=== PATIENT | male | born 1955 | race Caucasian/White ===

== ENCOUNTER 2016-07-21 17:55 | Emergency (ER) | payer SELFPAY ==
[~2016-07-21 17:55] MED LIST: AMARYL PO; ASPIRIN PO; ASPIRIN81 MG PO; AVALIDE 150-12.1 TAB PO; AVALIDE 300-251 TAB PO; BAYER ASPIRIN325 M1 PO; BENZONATATE PO; CYMBALTA PO; DEMADEX PO; DEPO-TESTOT200 MG/ML IM; DULOXETINE HCL60 MG PO; FENOFIBRATE160 MG PO; FERROUS SULFATE PO; FISH OIL 1,2001 EAC3 PO; FLEXERIL PO; GABAPENTIN800 MG PO; IBUPROFEN PO; KCL PO; LANTUS100 U/ML SUBQ; LIPITOR PO; LISINOPRIL-HCTZ1 T14 PO; LORTAB 7.5-5001 TAB PO; LOVAZA1 G PO; MELOXICAM15 MG PO; NEURONTIN PO; NIACIN PO; NIASPAN PO; NITROGLYCERIN0.4 MG SL; OXYCODON HCL-AP1 TA2 PO; PATIENT'S PHARMACY; PLAVIX PO; PRILOSEC PO; ROBAXIN 750750 M1 PO; SERTRALINE HCL100 MG PO; SIMVASTATIN80 MG PO; STOOL SOFTENER50 MG PO; TOPIRAGEN50 MG PO; TOPIRAMATE100 MG PO; TRIGLIDE160 M1 PO; TRILIPIX CO; TRILIPIX PO; VITAMIN D 4001 UDTAB PO; VITAMIN D PO; VITAMIN D250000 UNIT PO; ZESTORETIC 20-1 EAC1 PO
== END 2016-07-21 18:00 | disposition left against medical advice (07) ==
LOC: CED 17:55
DX: Z53.21 Procedure and treatment not carried out due to patient leaving prior to being seen by health care provider (principal)

== ENCOUNTER → 2016-12-31 | Outpatient (CLI) | payer OTHER ==
--- NOTE | ~2016-12-31 | EKG ---
PATIENT: TJ KOCH UNIT #: [id number] Ventricular Rate: 63 BPM Atrial Rate: 63 BPM P-R Interval: 178 ms QRS Duration: 104 ms Q-T Interval: 394 ms QTC Calculation(Bezet): 403 ms P [place]: 117 degrees Calculated R [place]: -9 degrees Calculated T [place]: 57 degrees Diagnosis Line: Normal sinus rhythm Diagnosis Line: Normal ECG Diagnosis Line: When compared with ECG of 06-AUG-2015 11:25, Diagnosis Line: No significant change was found Diagnosis Line: Confirmed by MARTIN SPENCER MD ([id number]) on Diagnosis Line: 01/01/2017 4:39:40 PM INTERPRETING MD: [email or web address]
[2016-12-31 10:25] LABS: HEMATOCRIT 36.3 % (38.0-50.0); HEMOGLOBIN 11.9 gm/dL (13.0-16.0); MEAN CELL VOLUME 81.1 FL (83-96); MEAN CORPUSCULAR HEMOGLOBIN 26.6 PG (28-34); MEAN CORPUSCULAR HGB CONC 32.8 g/dL (30-36); MEAN PLATELET VOLUME 7.4 FL (6.5-11.5); RED BLOOD COUNT 4.48 X10e (3.90-5.60); RED CELL DISTRIBUTION WIDTH 13.9 % (11.0-15.5); WHITE BLOOD COUNT 5.8 X10e3 (4.0-10.5)
[2016-12-31 10:47] LABS: BUN/CREATININE RATIO 19.28; CREATININE SERUM 1.4 mg/dL (0.6-1.4); GLOM FILT RATE Estimated 54.6 mL/min (>60); POTASSIUM 4.7 mmol/L (3.5-5.1)
== END | disposition home or self-care (01) ==
LOC: CLAB 09:29
PROVIDERS: Orthopaedic Surgery
DX: Z01.818 Encounter for other preprocedural examination (principal); M22.42 Chondromalacia patellae, left knee
CPT/HCPCS: 36415; 80048; 85027; 93005